=== PATIENT | male | born 1980 | race Caucasian/White ===

== ENCOUNTER 2020-03-31 21:18 | Emergency (ER) | payer MEDICAID, SELFPAY ==
[~2020-03-31] VITALS: Ht 165.1 cm; Wt 77.1 kg
[2020-03-31 21:22] VITALS: BP 119/83; Ht 165.1 cm; Wt 77.1 kg
== END 2020-03-31 23:10 | disposition home or self-care (01) ==
LOC: ED 21:18
DX: U07.1 COVID-19 (principal)
CPT/HCPCS: 82962; 87804; Q0162; U0003